=== PATIENT | female | born 1965 | race Caucasian/White ===

== ENCOUNTER 2017-07-20 09:59 | Emergency (ER) | payer OTHER ==
[2017-07-20] MEDS ORDERED: predniSONE TAB* 20 MG PO ONE (10:44)
--- NOTE | 2017-07-20 10:44 | UC ---
Respiratory Complaint HPI - HPI Summary HPI Summary: 52 y/o female PMHX of Asthma presents to the urgent care c/o head congestion, productive cough with green secretions, sore throat that started 1 week ago. Pt states she starte using the albuterol nebulizers treatment yesterday since she felt with SOB and mild wheezing. Pt is taking Mucinex Max fast to alleviate symptoms. [place] and sinus pain today is 6/10. Nasal congestion with green discharge. Pt denies fever, chest pain, N/V/D. - History of Current Complaint Stated Complaint: SINUS HEAD/CHEST CONGESTION Time Seen by Provider: 07/20/17 10:25 Hx Obtained From: Patient Hx Last Menstrual Period: n/a ?: No Onset/Duration: Gradual Onset, Lasting Weeks, Still Present Timing: Constant Severity Initially: Mild Severity Currently: Moderate Pain Intensity: 6 - Headache Pain Scale Used: 0-10 Numeric Character: Cough: Productive - green sputum Alleviating Factors: Bronchodilator, OTC Meds - Mucinex and sinus syrup Associated Signs And Symptoms: Positive: Dyspnea - mild, Wheezing, Nasal Congestion, Sinus Discomfort. Negative: Fever Related History: Seasonal Allergies - Risk Factors Pulmonary Embolism Risk Factors: Negative Cardiac Risk Factors: Negative Pseudomonas Risk Factors: Negative Tuberculosis Risk Factors: Negative - Allergies/Home Medications Allergies/Adverse Reactions: Allergies Allergy/AdvReac Type Severity Reaction Status Date / Time Cefaclor [From Ceclor] Allergy Severe Hives Verified 07/20/17 10:25 Penicillins Allergy Unknown Unknown Verified 07/20/17 10:25 Reaction Details Clarithromycin [From Biaxin] Allergy Hives Verified 07/20/17 10:25 Sulfa Antibiotics Allergy Itching Verified 07/20/17 10:25 enviromental Allergy Sneezing Uncoded 07/20/17 10:25 Home Medications: Home Medications Phenylephrine-Diphenhydramine- [MUCINEX FAST-MAX DAY/NIGH (Tablet)] 1 mis PO BID PRN 07/20/17 [History Confirmed 07/20/17] PMH/Surg Hx/FS Hx/Imm Hx Previously Healthy: Yes Respiratory History: Asthma Other Respiratory History: [id number] allergies Psychological History: Depression - Surgical History Surgical History: Yes Surgery Procedure, Year, and Place: tubaligation. hernia x2. knee surgery. T& A. c section - Family History Known Family History: Positive: Cardiac Disease, Hypertension - Social History Occupation: Employed Full-time Lives: With Family Alcohol Use: Occasionally Substance Use Type: None Smoking Status (MU): Light Every Day Tobacco Smoker Type: Cigarettes Amount Used/How Often: 1/2 ppd When Did the Patient Quit Smoking/Using Tobacco: 08/27 Household Exposure Type: Cigarettes Review of Systems Constitutional: Negative Skin: Negative Eyes: Negative ENT: Sore Throat, Nasal Discharge, Sinus Congestion, Sinus Pain/Tenderness Respiratory: Shortness Of Breath - at home, Cough - productive with green phlegm Cardiovascular: Negative Gastrointestinal: Negative Genitourinary: Negative Motor: Negative Neurovascular: Negative Musculoskeletal: Negative Neurological: Negative Psychological: Negative All Other Systems Reviewed And Are Negative: Yes Physical Exam Triage Information Reviewed: Yes Appearance: Well-Appearing, No Pain Distress, Well-Nourished Vital Signs Reviewed: Yes Eye Exam: Normal Eyes: Positive: Conjunctiva Clear - PERRLA, EOMI ENT: Positive: Normal ENT inspection, Hearing grossly normal, Pharynx normal, Nasal congestion - erythematous and edematous nasal mucosa, with sinus tenderness on maxiallry and frontal sinusis on percussion, Nasal drainage - yellowish nasal discahre, TMs normal. Negative: Tonsillar swelling, Tonsillar exudate Dental Exam: Normal Neck exam: Normal Neck: Positive: Supple, Nontender, No Lymphadenopathy Respiratory Exam: Normal Respiratory: Positive: Chest non-tender, Normal breath sounds, Wheezing - Posterior left lung with diffuse w Cardiovascular Exam: Normal Cardiovascular: Positive: RRR, No Murmur, Pulses Normal Abdominal Exam: Normal Abdomen Description: Positive: Nontender, No Organomegaly, Soft. Negative: CVA Tenderness (R), CVA Tenderness (L) Bowel Sounds: Positive: Present Musculoskeletal Exam: Normal Musculoskeletal: Positive: Strength Intact, ROM Intact, No Edema Neurological Exam: Normal Psychological Exam: Normal Skin Exam: Normal Respiratory Course/Dx - Course Course Of Treatment: 52 y/o female PMHX of Asthma presents to the urgent care c/ o head congestion, productive cough with green secretions, sore throat that started 1 week ago. Pt states she starte using the albuterol nebulizers treatment yesterday since she felt with SOB and mild wheezing. Pt is taking Mucinex Max fast to alleviate symptoms. [place] and sinus pain today is 6/10. Nasal congestion with green discharge. Pt denies fever, chest pain, N/V/D. Hx obtained. PE: Pt with scattered wheezing on the LF posterior lung. O2sat: 97%. Pt given 60mg PO of Prednisone and Duneb treatment at the clinic. Pt's lung improved. Pt felt better. Pt D/C home with Rx Of prednisode taper dose, advised to continue nebulizer treatments at home. For Acute sinusitis Rx Flonase nasal spray and advised to comtinue with Municex Max Fast. Rx Ibuprofen Po to alleviate Headache. Pt Advised to f/u with PCP in 2-3 for further management on her Asthma. Pt understood and agreed. - Differential Dx/Diagnosis Differential Diagnosis/HQI/PQRI: Asthma, Bronchitis, Exacerbation Of COPD, Influenza, Laryngitis, Lower Resp Infection, Sinusitis Provider Diagnoses: 1- Asthma exacerbation. 2-Acute sinusitis Discharge - Discharge Plan Condition: Stable Disposition: HOME Prescriptions: Fluticasone NASAL SPRAY 50MCG* [Flonase NASAL SPRAY 50MCG*] 2 spray BOTH NARES DAILY #1 btl Ibuprofen TAB* [Motrin TAB* 800 MG] 800 mg PO Q6H #20 tab predniSONE TAB* [Deltasone TAB*] 20 mg PO DAILY #8 tab Patient Education Materials: Asthma (ED), Sinusitis (ED) Referrals: Radha Blount MEDICAL SOCIOLOGIST [Primary Care Provider] - 3 Days Additional Instructions: 1-Take Prednisone PO as directed and continue using the albuterol nebulizer treatments at home q4-6hrs 2- Take the nasal spray as directed to alleviate symptoms of sinusitis. Use also saline drops. Take the Ibuprofe PO q6-8hrs prn after meals to allevaite headache 2- If symptoms do not improve or worsen or your develop SOB with fever and severe wheezing please go immediately to the ER further evaluation and treatment. 3- F/u with your PCP in 2-3 days for further management on your Asthma
[2017-07-20] MEDS ORDERED: Albuterol/Ipratropium NEB.SOL* Albuterol 2.5 MG/Ipratropium 0.5 MG 3 ML INH ONE (10:45)
[2017-07-20 10:59] VITALS: BP 114/76
== END 2017-07-20 11:29 | disposition home or self-care (01) ==
LOC: UCCORT 09:59
DX: J45.901 Unspecified asthma with (acute) exacerbation (principal); J01.90 Acute sinusitis, unspecified; F32.9 Major depressive disorder, single episode, unspecified; Z88.2 Allergy status to sulfonamides; F17.210 Nicotine dependence, cigarettes, uncomplicated
CPT/HCPCS: 99212; A9270-GY; G0463; J7512

== ENCOUNTER 2019-12-05 14:59 | Emergency (ER) | payer OTHER ==
[2019-12-05 16:07] VITALS: BP 127/74
--- NOTE | 2019-12-05 16:52 | UC ---
Minor Trauma HPI - HPI Summary HPI Summary: 54 yo female was injured at work on 12/02 was lifting a pallet and fell backwards on pallet forks left buttock and hip pain left knee pain no head injury no neck pain no cp or sob had been able to work despite her injuries - History of Current Complaint Chief Complaint: UCGeneralIllness Stated Complaint: S/P FALL, 12/02/19, HIP PAIN, WC Time Seen by Provider: 12/05/19 16:22 Hx Obtained From: Patient Hx Last Menstrual Period: lmp 4-5 years ago Onset/Duration: Sudden Onset, Lasting Days Onset Of Pain: Immediate Severity Initially: Moderate Severity Currently: Moderate Pain Intensity: 7 Pain Scale Used: 0-10 Numeric Mechanism Of Injury: Fall From A Standing Position Aggravating Factor(s): Movement, Other: - sitting Alleviating Factor(s): Rest Associated Signs And Symptoms: Positive: Ecchymosis, Swelling Body - Head: 1 - ecchymosis 2 - hematoma 3 - tender greater troch - Allergies/Home Medications Allergies/Adverse Reactions: Allergies Allergy/AdvReac Type Severity Reaction Status Date / Time cefaclor [From [facility]] Allergy Hives Verified 12/05/19 16:00 clarithromycin Allergy Hives Verified 12/05/19 16:00 Penicillins Allergy Unknown Verified 12/05/19 16:00 Reaction Details Sulfa (Sulfonamide Allergy Itching Verified 12/05/19 16:00 Antibiotics) enviromental Allergy Sneezing Uncoded 12/05/19 16:00 Home Medications: Home Medications Fluticasone-Salmeterol 250-50* [Advair Diskus 250-50*] 1 puff BID 12/05/19 [ History Confirmed 12/05/19] Theophylline TAB* [Ryan Dur 300 MG*] 1 tab BID 12/05/19 [History Confirmed 12/05] PMH/Surg Hx/FS Hx/Imm Hx Previously Healthy: Yes Respiratory History: Asthma - Surgical History Surgical History: Yes Surgery Procedure, Year, and Place: tubal ligation. hernia x2. knee surgery. T&A. c section - Family History Known Family History: Positive: Cardiac Disease, Hypertension - Social History Alcohol Use: Occasionally Substance Use Type: None Smoking Status (MU): Former Smoker Type: Cigarettes Amount Used/How Often: 1/2 ppd Have You Smoked in the Last Year: Yes When Did the Patient Quit Smoking/Using Tobacco: 08/27 Household Exposure Type: Cigarettes Review of Systems All Other Systems Reviewed And Are Negative: Yes Constitutional: Positive: Negative Skin: Positive: Bruising Eyes: Positive: Negative ENT: Positive: Negative Respiratory: Positive: Negative Cardiovascular: Positive: Negative Gastrointestinal: Positive: Negative Genitourinary: Positive: Negative Motor: Positive: Negative Neurovascular: Positive: Negative Musculoskeletal: Positive: Arthralgia - left hip Neurological: Positive: Negative Psychological: Positive: Negative Physical Exam Triage Information Reviewed: Yes Appearance: Well-Appearing, No Pain Distress, Well-Nourished Vital Signs: Initial Vital Signs Temp 98.8 F 12/05/19 16:01 Pulse 78 12/05/19 16:01 Resp 16 12/05/19 16:01 BP 127/74 12/05/19 16:01 Pulse Ox 100 12/05/19 16:01 Vital Signs Reviewed: Yes Eyes: Positive: Conjunctiva Clear ENT: Positive: Hearing grossly normal, Uvula midline. Negative: Nasal congestion, Nasal drainage, TMs normal, Trismus, Muffled voice, Hoarse voice Neck: Positive: Supple Respiratory: Positive: Lungs clear, Normal breath sounds, No respiratory distress, No accessory muscle use Cardiovascular: Positive: RRR, No Murmur Musculoskeletal: Positive: ROM Intact, No Edema Neurological: Positive: Alert Psychological Exam: Normal Skin Exam: Other - ecchymosis Diagnostics - Radiology No standard instances Radiology Interpretation Completed By: Radiologist Summary of Radiographic Findings: no fracture noted Minor Trauma Course/Dx - Course Course Of Treatment: light duty note offered and declined by pt - Differential Dx/Diagnosis Provider Diagnosis: Contusion, buttock, Contusion of left knee Discharge ED - Sign-Out/Discharge Documenting (check all that apply): Patient Departure All imaging exams completed and their final reports reviewed: Yes - Discharge Plan Condition: Stable Disposition: HOME Patient Education Materials: Contusion in Adults (ED) Referrals: Radha Blount NP [Primary Care Provider] - Additional Instructions: ice twice daily advil recheck in 2 weeks if not better - Billing Disposition and Condition Condition: STABLE Disposition: Home
== END 2019-12-05 17:34 | disposition home or self-care (01) ==
LOC: UCCORT 14:59
DX: S30.0XXA Contusion of lower back and pelvis, initial encounter (principal); S80.02XA Contusion of left knee, initial encounter; J45.909 Unspecified asthma, uncomplicated; Z79.899 Other long term (current) drug therapy; Z87.891 Personal history of nicotine dependence; W18.30XA Fall on same level, unspecified, initial encounter; Y93.89 Activity, other specified; Y92.9 Unspecified place or not applicable; Y99.0 Civilian activity done for income or pay; Z88.0 Allergy status to penicillin; Z88.1 Allergy status to other antibiotic agents; Z88.2 Allergy status to sulfonamides; Z91.09 Other allergy status, other than to drugs and biological substances
CPT/HCPCS: 99211; G0463